=== PATIENT | male | born 1980 | race Caucasian/White ===

== ENCOUNTER 2021-11-02 01:00 | Emergency (ER) | payer OTHER ==
[~2021-11-02] VITALS: Ht 172.7 cm; Wt 76.4 kg
[2021-11-02 02:38] LABS: BASO # 0.03 K/mm3 (0.02-0.10); EOS # 0.06 K/mm3 (0.04-0.40); EOS % 0.7 % (0.0-4.0); HEMATOCRIT 46.5 % (42.0-52.0); HEMOGLOBIN 15.4 g/dL (13.5-18.0); LYMPH# 1.55 K/mm3 (1.50-4.00); MEAN CELL VOLUME 90 fl (78-100); MEAN CORPUSCULAR HEMOGLOBIN 30 pg (27-31); MEAN CORPUSCULAR HGB CONC 33 g/dL (33-37); MEAN PLATELET VOLUME 9.5 fl (7.4-10.4); MONO # 0.41 K/mm3 (0.20-0.80); PLATELET COUNT 288 K/mm3 (130-400); RED BLOOD COUNT 5.18 M/mm3 (4.20-5.60); WHITE BLOOD COUNT 8.6 K/mm3 (4.8-10.8)
[2021-11-02 02:41] LABS: ALBUMIN 4.3 g/dL (3.5-5.0)
[2021-11-02 02:42] LABS: POTASSIUM 4.2 mmol/L (3.5-5.1)
[2021-11-02 02:43] LABS: CALCIUM 9.4 mg/dL (8.3-10.5)
[2021-11-02 02:44] LABS: TOTAL PROTEIN 7.4 g/dL (6.4-8.3)
[2021-11-02 02:46] LABS: TOTAL BILIRUBIN 0.5 mg/dL (0.2-1.2)
[2021-11-02 03:15] VITALS: BP 125/84
== END 2021-11-02 03:15 | disposition home or self-care (01) ==
LOC: ED 01:00
PROVIDERS: Family Medicine
DX: R07.89 Other chest pain (principal); Z87.891 Personal history of nicotine dependence